=== PATIENT | female | born 1995 | race Caucasian/White ===

== ENCOUNTER → 2024-11-28 | Outpatient (CLI) | payer BC, SELFPAY ==
[2024-11-28 16:49] LABS: Basophils # (Auto) 0.1 Thou/mm3 (0.0-0.2); Basophils % (Auto) 1 % (0-2.5); Eosinophils # (Auto) 0.1 Thou/mm3 (0.0-0.5); Eosinophils % (Auto) 1 % (0-10); Hematocrit 40.2 % (36.0-46.0); Hemoglobin 13.3 g/dL (12.0-16.0); Immature Granulocytes % (Auto) 0 % (0-0); Immature Granulocytes Auto 0.03 Thou/mm3 (0.00-0.00); Lymphocytes # (Auto) 2.3 Thou/mm3 (1.0-4.8); Lymphocytes % (Auto) 24 % (10-50); Mean Corpuscular HGB Conc 33.1 g/dl (31.0-37.0); Mean Corpuscular Hemoglobin 28.9 pg (25.0-35.0); Mean Corpuscular Volume 87 fL (80-100); Monocytes # (Auto) 0.4 Thou/mm3 (0.0-0.8); Monocytes % (Auto) 4 % (0-12); Neutrophils # (Auto) 6.7 Thou/mm3 (1.8-7.7); Neutrophils % (Auto) 71 % (37-80); Nucleated Red Blood Cell % 0 /100 WBC (0); Platelet Count 243 Thou/mm3 (140-440); RDW Standard Deviation 39.5 fL (36.4-46.3); Red Blood Count 4.61 Miln/mm3 (4.00-5.20); White Blood Count 9.5 Thou/mm3 (3.6-11.0)
[2024-11-28 17:00] LABS: INR 1.1 (0.9-1.3); Prothrombin Time 11.9 Seconds (9.0-12.2)
[2024-11-28 17:06] LABS: Alanine Aminotransferase 28 U/L (10-49); Albumin, Serum 4.7 gm/dL (3.5-5.0); Albumin/Globulin Ratio 1.7 (1.2-2.2); Alkaline Phosphatase 112 U/L (46-116); Anion Gap 9 (7-16); Aspartate Amino Transferase 22 U/L (0-34); BUN/Creatinine Ratio 13 Ratio (12-20); Bilirubin,Total 0.6 mg/dL (0.3-1.2); Blood Urea Nitrogen 9 mg/dL (9-23); Calcium 9.6 mg/dL (8.3-10.6); Calcium (Corrected) 9.6 mg/dL (8.5-10.1); Carbon Dioxide 27.2 mMol/L (20.0-31.0); Chloride 104 mMol/L (98-107); Creatinine (Component) 0.7 mg/dL (0.6-1.3); Globulin 2.8 gm/dL (2.3-3.5); Glucose 86 mg/dL (74-106); Osmolality,Calculated 277 (275-295); Potassium 3.7 mMol/L (3.4-5.1); Sodium 140 mMol/L (136-145); Total Protein 7.5 gm/dL (5.7-8.2); eGFR > 60 See Note
[2024-11-28 17:10] LABS: T4 (Thyroxine) 6.5 mcg/dL (4.5-10.9)
[2024-11-28 18:25] LABS: Follicle Stimulating Hormone 9.69 mIU/mL (See Note)
[2024-12-04 06:49] LABS: DHEA Sulfate* 213 mcg/dL (18-391); Luteinizing Hormone* 10.6 mIU/mL; Prolactin* 7.4 ng/mL
== END | disposition home or self-care (01) ==
LOC: COPL 15:45
PROVIDERS: PCP Family Medicine; Referring Provider Family Medicine; Visit Provider Family Medicine
DX: N91.1 Secondary amenorrhea (principal)
CPT/HCPCS: 36415; 80053; 82627; 83001; 83002; 84146; 84436; 84443; 85025; 85610

== ENCOUNTER → 2024-12-07 | Outpatient (CLI) | payer BC, SELFPAY ==
--- NOTE | 2024-12-07 10:45 | XR_ITS ---
Examination: Pelvic ultrasound, transabdominal, complete Technique: Transabdominal ultrasound of the pelvis performed using grayscale imaging Date and time of exam: December 07, 2024 1108 hours INDICATIONS: Amenorrhea 2 years intermittent pelvic pain 10 years, history PCOS FINDINGS: Uterus 6.3 x 3.6 x 4.9 cm No uterine mass or intrauterine gestation Endometrial stripe 0.5 cm Ovaries obscured by bowel gas IMPRESSION: Limited study No uterine mass or intrauterine gestation
== END | disposition home or self-care (01) ==
LOC: CDIM 10:34
PROVIDERS: PCP Family Medicine; Referring Provider Family Medicine; Visit Provider Family Medicine
DX: N91.1 Secondary amenorrhea (principal)
CPT/HCPCS: 76856

== ENCOUNTER → 2025-02-28 | Outpatient (CLI) | payer BC, SELFPAY ==
[2025-03-05 07:04] LABS: Prolactin* 10.3 ng/mL
== END | disposition home or self-care (01) ==
LOC: COPL 16:09
PROVIDERS: PCP Family Medicine; Referring Provider Family Medicine; Visit Provider Family Medicine
DX: N91.1 Secondary amenorrhea (principal)
CPT/HCPCS: 36415; 84146